=== PATIENT | female | born 1960 | race Caucasian/White ===

== ENCOUNTER 2018-10-17 19:12 | Emergency (ER) | payer MEDICAID ==
[~2018-10-17] VITALS: Ht 160 cm; Wt 106.8 kg
[~2018-10-17 19:12] MED LIST: ASPI-676; BENA40TA56; GLIM4TAB55; INSU100V19; MTF1000T; PIOG15TA12; SIMV40TA3
[2018-10-17 19:49] VITALS: Ht 160 cm; Wt 106.8 kg
[2018-10-18] MEDS ORDERED: HYDROmorphONE 0.5 MG/0.5 ML SYG IM STA (00:11)
[2018-10-18] MEDS ORDERED: ONDANSETRON (ODT) 4 MG TAB ODT STA (00:11)
[2018-10-18] MEDS ORDERED: TRAM50TA2 PO (01:16)
[2018-10-18] MEDS ORDERED: IBUP800T48 PO (01:16)
--- NOTE | 2018-10-18 01:19 | ERD ---
ER Documentation Chief Complaint Chief Complaint left leg pain x 6 months, denies trauma HPI 58-year-old female is here with chronic pain in her left lower extremity particularly her left posterior calf. Is been going on for over 6 months but got worse in the past 2 days. No trauma. No recent travel. No chest pain shortness of breath or palpitations. Takes ibuprofen at home which does not really ROS All systems reviewed and are negative except as per history of present illness. Medications Home Meds Active Scripts Tramadol HCl (Tramadol HCl) 50 Mg Tablet, 50 MG PO Q4 PRN for PAIN, #20 TAB Prov:EPHRAIM ELLIS PA-C 10/18/18 Ibuprofen* (Motrin*) 800 Mg Tab, 800 MG PO Q6, #30 TAB Prov:EPHRAIM ELLIS PA-C 10/18/18 Reported Medications Benazepril Hcl* (Benazepril Hcl*) 40 Mg Tablet 12/12/10 Pioglitazone Hcl* (Actos*) 15 Mg Tablet 12/12/10 Simvastatin (Simvastatin) 40 Mg Tablet 12/12/10 Pioglitazone Hcl* (Actos*) 15 Mg Tablet 12/12/10 Glimepiride* (Amaryl*) 4 Mg Tablet 12/12/10 Insulin Glargine,Hum.rec.anlog (Lantus) 100 U/Ml Vial 12/12/10 Aspirin (Nigel Child) 81 Mg Chew 12/12/10 Metformin* (Glucophage*) 1,000 Mg Tablet 12/12/10 Allergies Allergies: Coded Allergies: No Known Allergies (Verified Allergy, Mild, 09/04/13) PMhx/Soc History of Surgery: Yes () Anesthesia Reaction: No Hx Neurological Disorder: No Hx Respiratory Disorders: No Hx Cardiac Disorders: Yes (HTN) Hx Psychiatric Problems: No Hx Miscellaneous Medical Probl: Yes (DM) Hx Alcohol Use: No Hx Substance Use: No Hx Tobacco Use: No FmHx Family History: No diabetes Physical Exam Vitals Vital Signs Date Temp Pulse Resp B/P (MAP) Pulse Ox O2 O2 Flow FiO2 Time Delivery Rate 10/17/18 99.0 97 18 145/71 98 19:49 (95) Physical Exam INITIAL VITAL SIGNS: Reviewed by me GENERAL: Awake, alert and oriented x 4, well appearing, nontoxic, speaking in full sentences. No acute distress HEAD: Atraumatic RESPIRATORY: Clear to auscultation bilaterally. Symmetric chest wall rise. No wheezing or rales. No accessory muscle use. CV: Regular rate and rhythm. No murmurs, rubs, or gallops. Lower Extremity -left Skin: No laceration Compartments: Soft Motor: Full active range of motion hip/knee/ankle/foot Sensation: Intact to light touch FDWS/MF/LF/P surfaces. Bones: Left posterior calf tenderness without any swelling redness or induration Joints: No effusion or laxity Pulses/Perfusion: 2+ DP, Capillary refill < 2 seconds Results 24 hrs Current Medications Medications Dose Sig/Aylin Start Time Status Last (Trade) Ordered Route PRN Stop Time Admin Dose Reason Admin 1 mg ONCE STAT 10/18/18 DC 10/18/18 Hydromorphone IM 00:11 00:31 HCl 10/18/18 00:12 (Dilaudid) Ondansetron 8 mg ONCE STAT 10/18/18 DC 10/18/18 HCl (Zofran ODT 00:11 00:32 Odt) 10/18/18 00:12 Procedures/MDM 58-year-old female presents with left calf pain. Injection of Dilaudid given as well as Zofran. DVT ultrasound is negative. Patient discharged with ibuprofen and tramadol. Patient counseled regarding my diagnostic impression and care plan. Prior to discharge all questions answered. Pt agrees with treatment plan and understands strict return precautions. Pt is instructed to follow up with primary care provider within 24-48 hours. Precautionary instructions provided including instructions to return to the ER if not improving or for any worsening or changing symptoms or concerns. Departure Diagnosis: Primary Impression: Pain of left leg Condition: Stable Patient Instructions: Myalgias Additional Instructions: Llame al doctor JERMAN y orlando harman LYNN PARA DENTRO DE 1-2 LUGO.Dgale a la secretaria que nosotros le instruimos hacer esta lynn.Avise o llame si canales condicin se empeora antes de la lynn. Regresa aqui si peor o no mejor. EPHRAIM ELLIS PA-C Oct 18, 2018 01:19
[2018-10-18 01:33] VITALS: BP 116/63; PULSE 81; RESP 20
== END 2018-10-18 01:35 | disposition home or self-care (01) ==
LOC: FTE 19:12
DX: M79.605 Pain in left leg (principal); I10 Essential (primary) hypertension; E11.9 Type 2 diabetes mellitus without complications; Z79.4 Long term (current) use of insulin; Z79.82 Long term (current) use of aspirin
CPT/HCPCS: 93971; 96372; J1170; Z7502; Z7610